=== PATIENT | female | born 1995 | race Caucasian/White ===

== ENCOUNTER → 2017-03-02 | Outpatient (CLI) | payer OTHER ==
--- NOTE | 2017-03-02 15:49 | DIAGNOSTIC IMAGING REPORT ---
LEFT ANKLE MIN 3 VIEWS ROUTINE CLINICAL HISTORY: 21 years-old Female presenting with LT ANKLE INJURY. TECHNIQUE: Frontal, mortise, and lateral views of the left ankle were obtained. COMPARISON: None. FINDINGS: No acute fracture or malalignment. Ankle mortise intact. No ankle joint effusion. No degenerative change. Regional soft tissues normal. IMPRESSION: No acute osseous injury of the left ankle. Electronically signed by: Rivas Nguyen M.D. 03/02/2017 3:48 PM Dictated Date/Time: 03/02/2017 3:47 PM
--- NOTE | 2017-03-02 15:51 | DIAGNOSTIC IMAGING REPORT ---
LEFT TIBIA/FIBULA 2 VIEWS ROUTINE CLINICAL HISTORY: 21 years-old Female presenting with LT ANKLE INJURY, pain. TECHNIQUE: Frontal and lateral views of the left lower leg were obtained. COMPARISON: None. FINDINGS: No acute fracture or malalignment. Knee joint and ankle mortise grossly intact. Regional soft tissues normal. IMPRESSION: No acute osseous injury of the left lower leg. Electronically signed by: Rivas Nguyen M.D. 03/02/2017 3:50 PM Dictated Date/Time: 03/02/2017 3:49 PM
== END | disposition home or self-care (01) ==
LOC: C.RAD1850 14:39
PROVIDERS: ATTEND Student in an Organized Health Care Education/Training Program
DX: S99.912A Unspecified injury of left ankle, initial encounter (principal); X58.XXXA Exposure to other specified factors, initial encounter